=== PATIENT | female | born 1950 | race African-American/Black ===

== ENCOUNTER → 2017-04-28 | Outpatient (CLI) | payer MEDICARE, MEDICAID ==
[~2017-04-28] MED LIST: COZAAR50 MG PO; GLUCOPHAGE500 MG ORAL; LIDODERM700 M1 TP; PERCOCET 10-321 EACH ORAL; TENORMIN50 MG ORAL; TIZANIDINE HCL4 MG PO; TOPAMAX25 MG ORAL; VALIUM2 MG ORAL; VITAMIN D31 M1 MC
--- NOTE | 2017-04-28 15:18 | Diagnostic Imaging Report ---
Indication: Technique: Sagittal T1 FLAIR PROPELLER, sagittal T2 PROPELLOR, sagittal STIR, axial T2 PROPELLER images were obtained through the cervical spine. Axial 3D COSMIC ASPIR images could not be obtained, due to patient being unable tolerate any further imaging Comparison: 01/08/2010 Findings: Axial images demonstrate image degradation due to motion artifact. There is very slight reversal of the normal cervical lordosis. Otherwise normal bony alignment. Vertebral body marrow signal is preserved. There is equivocal increased cord T2 signal in the mid cervical spine between C4 and C6 At C2-3, the disc space is preserved. No significant disc bulge or protrusion. However, short pedicles result in borderline narrowing of the spinal canal at this level. There is moderate neural foraminal stenosis on the left. The right neural foramen is preserved. At C3-4, there is minimal circumferential annular bulge. There is mild to moderate narrowing of the spinal canal at this level, predominantly due to short pedicles and thickening of the posterior longitudinal ligament, also contributed to some extent by the annular bulge. There is moderate to severe left neural foraminal stenosis. The right neural foramen is preserved. The disc space is preserved. At C4-5, there is borderline spinal stenosis, predominantly due to short pedicles and thickening of the posterior longitudinal ligament. No significant disc bulge or protrusion. There is mild right, moderate left neural foraminal stenosis. The disc space is preserved. At C5-6, there is mild circumferential annular bulge. This results in borderline narrowing of the spinal canal. There is mild bilateral neural foraminal stenosis. The disc space is preserved. At C6-7, there is degenerative disc narrowing. There is moderate to severe right, severe left neural foraminal stenosis. There is mild circumferential annular bulge. This, in combination with short pedicles, results in borderline narrowing of the spinal canal. At C7-T1, there is degenerative disc narrowing. There is very mild circumferential annular bulge, which does not result in any significant narrowing of the spinal canal. There is moderate to severe right, at least moderate left neural foraminal stenosis. Cysts The included extraspinal soft tissues are unremarkable. Compared to prior exam, the degenerative disc narrowing at C6-7 has progressed. The questionable cord signal is unchanged. The spinal stenosis at C3-4 appears slightly worse than on the previous study. The spinal stenosis and neural foraminal stenosis at other levels appears unchanged. Previously demonstrated interspinous edema is not evident, although the previously described with the appearance of the interspinous ligament is again demonstrated. Impression: Multilevel spinal stenosis, as described above, slightly progressive at C3-4 is compared to previous 2010 exam, otherwise unchanged Multilevel degenerative neural foraminal narrowing, as detailed level basis above. Very questionable increased T2 signal within the mid cervical cord, if real could indicate mild myelomalacia. If real not significantly changed from the earlier exam Previously demonstrated acute suspected posttraumatic posterior soft tissue changes are no longer evident
--- NOTE | 2017-04-28 16:13 | Diagnostic Imaging Report ---
Indication: 58-year-old male outpatient with chronic lumbar radiculopathy Technique: Sagittal T1 and T2 fast spin echo, sagittal STIR, axial T1 and T2 fast spin-echo images of the lumbar spine Comparison: Lumbar spine CT dated 11/30/2009, lumbar spine radiographs dated 12/03/2012 Findings: There is very slight posterior offset of L5 on S1, also demonstrated on prior CT. There is minimal anterior offset of L4 on L5, also demonstrated on prior CT. 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 The conus medullaris terminates at the T12-L1 level. There are are mild generalized Modic type fatty marrow changes. There is also generalized decreased marrow signal within the inferior L2 and superior L3 vertebral bodies. This most likely represents subchondral sclerosis related to degenerative change. The vertebral body heights are preserved At T12-L1, the disc space is preserved. The neural foramina are preserved. No significant disc bulge or protrusion or spinal stenosis At L1-2, there is degenerative disc narrowing. There is mild circumferential annular bulge. There is also focal subarticular disc protrusion on the left which only minimally if at all compromises the neural foramen. No significant spinal canal stenosis. There is mild to moderate neural foraminal narrowing on the right, due to the circumferential annular bulge as well as facet hypertrophy. Allowing for differences in modalities, this finding is probably unchanged. At L2-3, there is mild degenerative disc narrowing, considerable subchondral sclerosis as described earlier which is more extensive than on the 2010 [address] scan but documented on 2013 plain radiograph. There is circumferential annular bulge. This, in combination with short pedicles, results in moderate narrowing of the spinal canal, which appears progressive since the prior exam. There is bilateral facet arthrosis. This results in mild left, moderate right neural foraminal stenosis which is probably worse than was evident previously. At L3-4, there is mild degenerative disc narrowing, which appears similar the prior CT. There is circumferential annular bulge which results in mild central canal stenosis. There is moderate right and mild left neural foraminal narrowing, due to combination of the bulging disc and facet arthrosis. Findings at this level are similar to the prior CT At L4-5, there is a large right intraforaminal disc protrusion. This equivocally compromises the right lateral recess, results in moderate to severe narrowing of the neural foramen. It is unclear extensive this was evident previously, as there is better delineation of the detail on the current study. There is also moderate to severe narrowing of the left neural foramen, predominantly due to facet arthrosis. The disc space is preserved. L5-S1, there is generalized circumferential annular bulge. This does not result in significant compromise of the spinal canal. There is mild right and moderate left neural foraminal stenosis at this level. The degree of neural foraminal compromise appears somewhat progressive since the prior exam. The included extraspinal soft tissues are unremarkable. Impression: Multilevel degenerative changes, as detailed a level by level basis above, with likely areas of neural impingement. Some of these are grossly stable since prior 2010 CT scan, others have progressed No evidence of acute bony trauma
== END | disposition home or self-care (01) ==
LOC: MRI 09:32
DX: M54.16 Radiculopathy, lumbar region (principal); M54.12 Radiculopathy, cervical region
CPT/HCPCS: 72141; 72148